=== PATIENT | female | born 1970 | race Two or more races ===

== ENCOUNTER 2018-01-06 09:40 | Emergency (ER) | payer BC ==
[~2018-01-06] VITALS: Ht 162.6 cm; Wt 77.1 kg
[2018-01-06] MEDS ORDERED: KETOROLAC 60 MG/2 ML VIAL. IM ONE (11:15)
--- NOTE | 2018-01-06 11:32 | RAD ---
3 views right foot 01/06/2018 CLINICAL INDICATION: Fall with right foot pain. COMPARISON: None. FINDINGS: No acute fracture or traumatic malalignment. Joint spaces are maintained. The visualized soft tissues are unremarkable. Minimal infracalcaneal sprain. IMPRESSION: No acute osseous abnormality. Electronically signed by: Fernando Syed MD (01/06/2018 11:29 AM) [id number]
--- NOTE | 2018-01-06 11:34 | RAD ---
History: Fell 2 days ago, injury. Comparison: None. Findings: PA, lateral, and oblique views of the right hand. No acute fracture or dislocation is identified. Impression: No acute osseous abnormality identified. Electronically signed by: Rajiv Maynard MD (01/06/2018 11:30 AM) [place] [id number]
[2018-01-06] MEDS ORDERED: DICL100G18 TP (11:36)
[2018-01-06] MEDS ORDERED: CYCL-331 PO (11:36)
--- NOTE | 2018-01-06 11:37 | PHYS DOC ---
Past History Past Medical History: Hypertension Past Surgical History: Alcohol Use: None Drug Use: None Adult General Chief Complaint Chief Complaint: MECHANICAL FALL HPI HPI Patient is a 47 year old F who presents with right foot pain, right hand pain, right lateral thigh pain and right neck pain. Tiff states that she had a fall 2 days ago. She states that she tripped falling forwards "like a baby" onto her hands bilaterally. Initially she did not have hip pain/eye pain however this has been increasing over the past 24 hours. She does have chronic neck pain however she feels that the right side of her neck is worse than usual. She describes hand pain on the fifth finger side of her palm. This pain is worse with movement and palpation. Her foot pain is on the top of her foot. She is able to walk without difficulty. Her pain is worse with palpation. All other pain is worse with movement and palpation. She has no other associated symptoms at this time. She has no exacerbating or alleviating factors. Review of Systems Review of Systems Constitutional: Denies fever or chills [] Eyes: Denies change in visual acuity, redness, or eye pain [] HENT: Denies nasal congestion or sore throat [] Respiratory: Denies cough or shortness of breath [] Cardiovascular: No additional information not addressed in HPI [] GI: Denies abdominal pain, nausea, vomiting, bloody stools or diarrhea [] : Denies dysuria or hematuria [] Musculoskeletal: Negative except history of present illness Integument: Denies rash or skin lesions [] Neurologic: Denies headache, focal weakness or sensory changes [] Endocrine: Denies polyuria or polydipsia [] All other systems were reviewed and found to be within normal limits, except as documented in this note. Family History Family History No pertinent family medical history was reported Current Medications Current Medications Current Medications Medications (Trade) Dose Ordered Sig/Darshan Start Time Stop Time Status Last Admin Dose Admin Ketorolac Tromethamine (Toradol) 60 mg 1X ONCE 01/06/18 11:15 01/06/18 11:16 DC 01/06/18 11:26 60 MG Allergies Allergies Allergies Coded Allergies Type Severity Reaction Last Updated Verified ampicillin Allergy Unknown 01/06/18 Yes Physical Exam Physical Exam Constitutional: Well developed, well nourished, no acute distress, non-toxic appearance. [] HENT: Normocephalic, atraumatic, Eyes: EOMI, conjunctiva normal, no discharge. [] Neck: Normal range of motion, supple, no stridor. [] Bilateral paraspinal muscle spasm noted with point tenderness over spasm. Pain worse on the right Cardiovascular:Heart rate regular rhythm, no murmur [] Lungs & Thorax: Bilateral breath sounds clear to auscultation [] Abdomen: Bowel sounds normal, soft, no tenderness, no masses, no pulsatile masses. [] Skin: Warm, dry, no erythema, no rash. [] Back: No tenderness, no CVA tenderness. [] Extremities: no cyanosis, no clubbing, ROM intact, no edema. [] Tenderness to palpation on the medial hand over the fifth metacarpal without significant swelling noted. Tenderness to palpation over the dorsal foot, generalized, without significant swelling noted. Tenderness to palpation over the lateral right thigh along the course of the iliotibial band. No pain with range of motion in the hand, ankle, or hip. Neurovascularly intact in all locations described Neurologic: Alert and oriented X 3, normal motor function, normal sensory function, no focal deficits noted. [] Psychologic: Affect normal, judgement normal, mood normal. [] Current Patient Data Vital Signs Vital Signs Date Time Temp Pulse Resp B/P (MAP) Pulse Ox O2 Delivery O2 Flow Rate FiO2 01/06/18 10:22 83 16 133/80 (97) 100 Room Air 01/06/18 09:50 98.4 Lab Results Laboratory Tests Test 01/06/18 09:36 POC Urine HCG, Qualitative hcg negative (Negative) EKG EKG [] Radiology/Procedures Radiology/Procedures Right foot x-ray - no acute disease noted Right hand x-ray - no acute disease Course & Med Decision Making Course & Med Decision Making Pertinent Labs and Imaging studies reviewed. (See chart for details) [] Dragon Disclaimer Dragon Disclaimer This electronic medical record was generated, in whole or in part, using a voice recognition dictation system. Departure Departure: Impression: Primary Impression: Contusion of right hand Additional Impressions: Contusion of right foot Iliotibial band syndrome of right side Cervical paraspinal muscle spasm Disposition: 01 HOME, SELF-CARE Condition: STABLE Referrals: PCP,NO (PCP) Patient Instructions: Contusion, Soft Tissue Injury of the Neck Additional Instructions: Tiff was seen in the emergency department after a fall. No emergency medical condition was found on history or physical exam. She did have normal imaging of her right foot and right hand. Her symptoms are most consistent with contusions of the hand and foot. She also had findings of muscle spasm in her right leg and neck. She was encouraged to consider lidocaine patches for hand and foot. She was given a muscle relaxer for her neck and leg. Her leg symptoms are most consistent with IT band syndrome. She was also given a prescription for Voltaren gel to be used as needed for pain. She was encouraged to consider massage therapy. She is also advised follow-up with her primary care doctor as needed for further management. Scripts Diclofenac Sodium (VOLTAREN) 100 Gm Gel..gram. 1 GM TP QID, #100 GM 2 Refills Prov: KORINA KNUTSON MD 01/06/18 Cyclobenzaprine Hcl (CYCLOBENZAPRINE HCL) 10 Mg Tablet 1 TAB PO TID Y for PAIN for 3 Days, #9 TAB Prov: KORINA KNUTSON MD 01/06/18 Problem Qualifiers Primary Impression: Contusion of right hand Encounter type: initial encounter Qualified Codes: S60.221A - Contusion of right hand, initial encounter Additional Impressions: Contusion of right foot Encounter type: initial encounter Qualified Codes: S90.31XA - Contusion of right foot, initial encounter KORINA KNUTSON MD Jan 06, 2018 11:37
[2018-01-06 11:42] VITALS: BP 146/77
== END 2018-01-06 11:44 | disposition home or self-care (01) ==
LOC: ER 09:40
DX: S60.221A Contusion of right hand, initial encounter (principal); S90.31XA Contusion of right foot, initial encounter; M76.31 Iliotibial band syndrome, right leg; I10 Essential (primary) hypertension; G89.29 Other chronic pain; M62.838 Other muscle spasm; Z88.1 Allergy status to other antibiotic agents; W01.0XXA Fall on same level from slipping, tripping and stumbling without subsequent striking against object, initial encounter; Y93.89 Activity, other specified; Y99.8 Other external cause status; Y92.89 Other specified places as the place of occurrence of the external cause
CPT/HCPCS: 73130; 73630; 81025; 96372; 99284; J1885